=== PATIENT | female | born 1995 | race Caucasian/White ===

== ENCOUNTER 2016-09-25 11:08 | Emergency (ER) | payer OTHER ==
[~2016-09-25] VITALS: Ht 162.6 cm; Wt 80.8 kg
[~2016-09-25 11:08] MED LIST: AUGMENTIN875 MG PO; BCP; IBUPROFEN800 MG PO; MONO-LINYAH1 EACH PO; Motrin PO; PERCOCET 5/31 TABLET PO; PRENATAL VITAM1 EAC2 PO; PROZAC20 M1; TYLENOL REGULA325 MG PO; ZOFRAN ODT4 MG PO; ZOLOFT50 MG PO; ~No Medications
[2016-09-25 11:47] LABS: HEMATOCRIT 40.2 % (36.0-46.0); MCH 28.6 PG (29.0-34.0); MCHC 32.8 G/DL (30.0-36.0); MCV 87.2 FL (83-99); MEAN PLAT.VOLUME 11.6 uM^3 (9.5-12.4); PLATELET COUNT 274 K/uL (156-360); RBC DIS.WIDTH-SD 40.4 % (39-53); RED BLOOD COUNT 4.61 M/uL (3.80-5.20); WHITE BLOOD COUNT 7.6 K/uL (4.1-10.2)
[2016-09-25] MEDS ORDERED: ZOLOFT100 MG PO (12:27)
[2016-09-25] MEDS ORDERED: WELLBUTRIN XL300 MG PO (12:27)
[2016-09-25 12:54] LABS: ADD MIUA? YES; BILIRUBIN NEGATIVE; BLOOD NEGATIVE; COLOR YELLOW ((YELLOW)); GLUCOSE (STRIP) NEGATIVE; KETONES NEGATIVE; LEUKOCYTES NEGATIVE; NITRITE NEGATIVE; PROTEIN (STRIP) NEGATIVE; SPECIFIC GRAVITY 1.018 (1.000-1.030); UROBILINOGEN 0.2 MG/DL (0.2-1.0)
[2016-09-25 13:03] LABS: BACTERIA NONE SEEN /HPF; EPITHELIAL CELLS 1+ /HPF; MUCUS NONE SEEN /LPF; RED BLOOD CELLS 0-5 /HPF (0-5); UCUL ADDED? NO; WHITE BLOOD CELLS 0-5 /HPF (0-5)
[2016-09-25 16:09] VITALS: BP 111/66
== END 2016-09-25 16:10 | disposition home or self-care (01) ==
LOC: EME 11:08
DX: O20.0 Threatened abortion (principal); R11.0 Nausea; Z3A.01 Less than 8 weeks gestation of pregnancy
CPT/HCPCS: 76801; 81003; 84702; 85027; 99281; 99283

== ENCOUNTER 2017-09-18 12:30 | Emergency (ER) | payer OTHER ==
[~2017-09-18] VITALS: Ht 165.1 cm; Wt 86.3 kg
[~2017-09-18 12:30] MED LIST changes: +WELLBUTRIN XL300 MG PO; +ZOFRAN8 MG PO; +ZOLOFT100 MG PO; +ZUPLENZ4 MG PO
[2017-09-18 13:16] LABS: APPEARANCE CLOUDY ((CLEAR)); BILIRUBIN NEGATIVE; BLOOD NEGATIVE; COLOR YELLOW ((YELLOW)); GLUCOSE (STRIP) NEGATIVE; KETONES NEGATIVE; LEUKOCYTES TRACE; NITRITE NEGATIVE; PROTEIN (STRIP) NEGATIVE; UROBILINOGEN 0.2 MG/DL (0.2-1.0)
[2017-09-18 13:25] LABS: BACTERIA 1+ /HPF; EPITHELIAL CELLS 4+ /HPF; HYALINE CASTS 0-5 /LPF; MUCUS TRACE /LPF; RED BLOOD CELLS 0-5 /HPF (0-5); UCUL ADDED? NO; WHITE BLOOD CELLS 0-5 /HPF (0-5)
[2017-09-18 13:50] LABS: HEMATOCRIT 40.7 % (36.0-46.0); HEMOGLOBIN 13.6 G/DL (11.9-15.5); MCH 30.7 PG (29.0-34.0); MCHC 33.4 G/DL (30.0-36.0); MCV 91.9 FL (83-99); PLATELET COUNT 240 K/uL (156-360); RBC DIS.WIDTH-CV 12.4 % (11.8-14.6); RBC DIS.WIDTH-SD 41.6 % (39-53); RED BLOOD COUNT 4.43 M/uL (3.80-5.20); WHITE BLOOD COUNT 7.1 K/uL (4.1-10.2)
[2017-09-18 13:57] LABS: ALBUMIN 4.3 g/dL (3.2-4.8); CHLORIDE 108 mEq/L (99-109); POTASSIUM 4.2 mEq/L (3.7-5.4); SODIUM 141 mEq/L (136-147)
[2017-09-18 14:00] LABS: GLUCOSE 97 mg/dL (70-99); TOTAL PROTEIN 6.8 g/dL (6.4-8.3)
[2017-09-18 14:02] LABS: TOTAL BILIRUBIN 0.4 mg/dL (0.0-1.0)
[2017-09-18 14:03] LABS: ALKALINE PHOSPHATASE 67 IU/L (3-129); CREATININE 0.7 mg/dL (0.6-1.3); GFR ESTIMATE (CALCULATED) > 59 mL/min/
[2017-09-18 14:04] LABS: UREA NITROGEN (BUN) 7 mg/dL (9-23)
[2017-09-18 14:05] LABS: AST (GOT) 22 IU/L (2-34)
[2017-09-18 14:06] LABS: ALT (GPT) 22 IU/L (3-49)
[2017-09-18 14:15] LABS: QUANTITATIVE HCG < 4.0 MIU/ML
[2017-09-18] MEDS ORDERED: ZOFRAN ODT4 MG PO (20:26)
[2017-09-18 20:37] VITALS: BP 132/76
== END 2017-09-18 20:39 | disposition home or self-care (01) ==
LOC: EME 12:30
DX: R10.31 Right lower quadrant pain (principal); F41.9 Anxiety disorder, unspecified; F17.200 Nicotine dependence, unspecified, uncomplicated
CPT/HCPCS: 74177; 76856; 80053; 81003; 84702; 85027; 99281; 99284; J7030

== ENCOUNTER 2017-12-23 07:35 | Emergency (ER) | payer OTHER ==
[~2017-12-23] VITALS: Ht 165.1 cm; Wt 79.5 kg
[2017-12-23] MEDS ORDERED: LIDODERM 5% P1 PATCH TD (09:45)
[2017-12-23] MEDS ORDERED: IBUPROFEN600 MG PO (09:45)
[2017-12-23 10:17] VITALS: BP 120/78
== END 2017-12-23 10:19 | disposition home or self-care (01) ==
LOC: EME 07:35
DX: S30.0XXA Contusion of lower back and pelvis, initial encounter (principal); M54.2 Cervicalgia; R51 Headache; M25.561 Pain in right knee; W10.9XXA Fall (on) (from) unspecified stairs and steps, initial encounter; F17.200 Nicotine dependence, unspecified, uncomplicated
CPT/HCPCS: 70450; 71045; 72110; 72125; 99281; 99283; J1885